=== PATIENT | female | born 1955 | race Hispanic/Latino ===

== ENCOUNTER 2017-11-23 08:30 | Outpatient (CLI) | payer BC | END 2017-11-23 08:31 | disposition home or self-care (01) | LOC: BICMAMMO 08:30 | PROVIDERS: ATTEND Family Medicine | DX: Z12.31 Encounter for screening mammogram for malignant neoplasm of breast (principal) | CPT/HCPCS: 77063; 77067 ==

== ENCOUNTER 2018-05-28 08:31 | Emergency (ER) | payer BC ==
[2018-05-28 09:26] LABS: #Eosinphils 0.1 thou/uL (0.0-0.7); #Lymphocytes 1.4 thou/uL (1.20-3.40); #Monocytes 0.5 thou/uL (0.11-0.59); %Basophils 0.2 % (0.0-1.0); %Eosinophils 1.4 % (0.0-10.0); %Lymphocytes 17.1 % (21.0-51.0); %Monocytes 6.7 % (0.0-10.0); %Neutrophils 74.6 % (42.0-75.0); Hemoglobin 13.4 g/dL (12.0-16.0); Mean Corpuscular HGB CONC 32.9 g/dL (32.0-36.0); Mean Corpuscular Hemoglobin 30.8 pg (27.0-31.0); Mean Corpuscular Volume 93.5 fL (78.0-98.0); Mean Platelet Volume 6.4 fL (7.4-10.4); Platelet Count 304 thou/uL (130-400); RBC Distribution Width 11.9 % (11.5-14.5); Red Blood Cell (RBC) Count 4.37 mill/uL (4.20-5.40); White Blood Cell (WBC) Count 8.1 thou/uL (4.8-10.8)
[2018-05-28 09:27] LABS: Bilirubin Negative (Negative); Blood, Urine Trace (Negative); Clarity CLEAR (Clear); Glucose, Urine (Dipstick) Negative (Negative); Leukocyte Small (Negative); Nitrite Negative (Negative); Protein, Urine (Dipstick) Negative (Neg-Trace); Specific Gravity, Urine 1.021 (1.002-1.036); Urobilinogen 0.2 mg/dL (0.2-1.0)
[2018-05-28 09:28] LABS: Bacteria/HPF None Seen HPF (None Seen); Hyaline Casts/LPF 0-3 HYALINE CAST LPF (0-3 Hyaline); Pathc Cast-AUWi Flag 0.29 (0-2.49); Squamous Epithelial 0-3 HPF (0-3); WBC/HPF 0-3 HPF (0-3)
[2018-05-28 09:39] LABS: ALT (SGPT) 17 U/L (8-55); AST (SGOT) 18 U/L (5-34); Albumin 4.7 g/dL (3.4-4.8); Alkaline Phosphatase 60 U/L (40-150); Anion Gap 15 mmol/L (10-20); BUN (Urea Nitrogen) 16 mg/dL (9.8-20.1); Bilirubin, Total 0.4 mg/dL (0.2-1.2); Calc. Creatinine Clearance 0 mL/min (70-130); Calcium 9.6 mg/dL (7.8-10.44); Carbon Dioxide 25 mmol/L (23-31); Chloride 103 mmol/L (98-107); Estimated GFR-MDRD 73; Globulin 2.6 g/dL (2.4-3.5); Glucose 100 mg/dL (80-115); Lipase 17 U/L (8-78); Potassium 3.8 mmol/L (3.5-5.1); Protein, Total 7.3 g/dL (6.0-8.3); Sodium 139 mmol/L (136-145)
[2018-05-28] MEDS ORDERED: ISOVUE-370 76%-LOCM 1 ML ONE (09:50)
--- NOTE | 2018-05-28 14:03 | RAD ---
ONE VIEW CHEST TWO VIEWS ABDOMEN: History: Nausea, vomiting, dizziness. FINDINGS: There is fullness in the right paratracheal region which corresponds to a prominent azygos vein noted on CT from 06-02-17. Normal cardiac silhouette. The pulmonary vessels are within normal limits. Sligh t fullness in the right perihilar region. Costophrenic angles are clear. There is no pneumothorax or osseous abnormality. There is excreted contrast in the unremarkable left and right ureter. Bowel gas pattern is nonspecifi c. Surgical clips in the right upper quadrant. No obvious filling defects. Urinary bladder is unremar kable. IMPRESSION: 1. Possible left perihilar infiltrate. Continued surveillance to be sure of resolution. 2. Nonspecific bowel gas pattern. POS: [facility]
--- NOTE | 2018-05-28 14:06 | CT ---
CT ABDOMEN WITH CONTRAST CT PELVIS WITH CONTRAST: DATE: 05/28/2018 TIME: 12:43 p.m. HISTORY: A 62-year-old female with left lower quadrant abdominal pain. COMPARISON: None available. TECHNIQUE: IV injection of iodinated contrast media: Isovue-370 100 mL. Oral contrast media: Not administered. FINDINGS: There are multiple focal low attenuation lesions in the liver. Many of them are cysts. The largest is a round, 2 cm, well circumscribed, cystic lesion (density 14 HU), near the junction between the le ft and right lobes of the liver, near the liver dome (somewhere in the vicinity of the junction betwe en hepatic segments 4A and 8). Several of them are tiny and too small to definitively characterize. There is one irregularly-shaped low density lesion, which is located more inferiorly, in a subcapsul ar location, anterolaterally, somewhere near the junction between hepatic segments 4A and 8, measurin g approximately 1.4 x 0.9 x 0.4 cm. It has mixed-intermediate attenuation (axial image 20/91, series 2; coronal image 35 of 129, series 601). The rest of the liver parenchyma appears normal. No karla l vein thrombosis. Cholecystectomy clips in the gallbladder fossa. Mild extrahepatic biliary ductal dilation due to the cholecystectomy. A few tiny, focal, round hypodensities in the bilateral renal parenchyma, in the lower poles, too small to definitively characterize, but probably cysts. No hydro nephrosis. Normal abdominal aorta, pancreas, adrenals, and spleen. Retroaortic left renal vein. Ab sent uterus. Normal urinary bladder. Normal appendix. No small bowel dilation. No ascites or yi toneum. No colonic diverticulitis. A Schulte type dynamic compression screw fixating an old left i ntertrochanteric/subtrochanteric fracture. IMPRESSION: 1. No acute findings. 2. In addition to multiple hepatic cysts, there is one particular irregularly-shaped, mixed density lesion in the liver, which is indeterminate. Recommend multiphase CT of the abdomen with and without contrast (liver mass/hemangioma protocol), on an outpatient, elective basis. 3. Status post cholecystectomy and hysterectomy. 4. Status post fixation of old intertrochanteric/subtrochanteric left proximal femoral fracture with dynamic compression screw. KAVITHA Herman POS: [facility]
== END 2018-05-28 14:11 | disposition home or self-care (01) ==
LOC: ERS 08:31
DX: A08.4 Viral intestinal infection, unspecified (principal); E78.5 Hyperlipidemia, unspecified; I10 Essential (primary) hypertension; Z86.73 Personal history of transient ischemic attack (TIA), and cerebral infarction without residual deficits; F41.9 Anxiety disorder, unspecified; Z79.899 Other long term (current) drug therapy; Z79.82 Long term (current) use of aspirin
CPT/HCPCS: 36415; 74022; 74177; 80053; 81003; 81015; 83690; 85025; 87804; 93005; 96360

== ENCOUNTER 2018-07-19 09:34 | Outpatient (CLI) | payer BC ==
--- NOTE | 2018-07-19 11:24 | RAD ---
CHEST 2 VIEWS: Date: 07/19/18 HISTORY: Dyspnea. COMPARISON: 05/28/18. FINDINGS: Heart size is within normal limits. The lungs are clear. Again noted is prominence in the right azygo s region, evidence for an enlarged right azygos vein, consistent with azygos continuation of the IVC. No confluent pneumonia, overt edema, or pleural effusion. IMPRESSION: No acute intrathoracic disease. Stable from prior study. Abnormally enlarged azygos vein. POS: [facility]
== END 2018-07-19 09:35 | disposition home or self-care (01) ==
LOC: RAD 09:34
PROVIDERS: ATTEND Internal Medicine Critical Care Medicine
DX: R06.00 Dyspnea, unspecified (principal); I87.8 Other specified disorders of veins
CPT/HCPCS: 71046

== ENCOUNTER 2018-07-24 08:09 | Outpatient (CLI) | payer BC ==
--- NOTE | 2018-07-24 09:36 | CT ---
CT CHEST WITHOUT CONTRAST: HISTORY: Lung nodule. COMPARISON: CT pulmonary angiogram from 06/02/2017. FINDINGS: Absence of IV contrast reduces the sensitivity of the exam, particularly for evaluation of mediastina l, hilar, and vascular structures. There are vascular calcifications without evidence of aneurysmal dilatation of the thoracic aorta. N o pleural or pericardial effusions are seen. The 4 mm nodule in the right upper lobe is stable. No new lung nodules or masses are identified. Upper abdominal tomograms demonstrate liver cysts, a retroaortic left renal vein, postop changes of a cholecystectomy, and a small hiatal hernia. IMPRESSION: Stable 4 mm right upper lobe lung nodule. Follow-up exam in 12 month is recommended. POS: [facility]
== END 2018-07-24 08:10 | disposition home or self-care (01) ==
LOC: CT 08:09
PROVIDERS: ATTEND Internal Medicine Critical Care Medicine
DX: R91.1 Solitary pulmonary nodule (principal)
CPT/HCPCS: 71250

== ENCOUNTER 2018-09-06 07:46 | Outpatient (CLI) | payer BC ==
--- NOTE | 2018-09-06 08:22 | BD ---
DEXA BONE DENSITY STUDY: HISTORY: Menopausal screening. FINDINGS: Lumbar Spine: BMD (g/cm2) L1 0.675 T-Score: -2.9 L2 0.691 T-Score: -3.1 L3 0.672 T-Score: -3.7 L4 0.681 T-Score: -3.5 L1-L4 0.679 T-Score: -3.3 Evidence for osteoporosis with high risk for fracture. Right Hip: Femoral Neck: 0.421 T-Score: -3.9 Total Femur: 0.742 T-Score: -1.6 Evidence for osteoporosis with high risk for fracture. FRAX score not given because some T-Scores were at or below -2.5 Impression: Spine and right hip osteoporosis. POS: [facility]
== END 2018-09-06 07:47 | disposition home or self-care (01) ==
LOC: BICMAMMO 07:46
PROVIDERS: ATTEND Obstetrics & Gynecology
DX: Z13.820 Encounter for screening for osteoporosis (principal); M81.0 Age-related osteoporosis without current pathological fracture
CPT/HCPCS: 77080

== ENCOUNTER 2019-10-02 14:36 | Emergency (ER) | payer BC ==
[2019-10-02] MEDS ORDERED: Ketorolac Tromethamine 30 MG/ML VIAL ONE (15:00)
--- NOTE | 2019-10-02 16:43 | RAD ---
EXAM: LEFT WRIST THREE VIEWS: 09/12/19 HISTORY: Injury from trauma, mechanical fall. FINDINGS: Arthrosis and degenerative changes left wrist. No acute fracture or dislocation. IMPRESSION: Arthrosis and degenerative change without fracture or dislocation. POS: [facility]
--- NOTE | 2019-10-02 16:54 | RAD ---
EXAM: LEFT FEMUR TWO VIEWS: 10/02/19 HISTORY: Injury from trauma. Pain. Left compression screw stabilizing the left hip and proximal femur. No evidence for acute fracture or dislocation. IMPRESSION: No acute process. Internal fixation stabilizing the left hip and proximal femur. POS: [facility]
--- NOTE | 2019-10-02 18:08 | RAD ---
LEFT ELBOW FOUR VIEWS: 10/02/19 HISTORY: Elbow injury. There is no signs of fracture, dislocation or joint effusion. IMPRESSION: Negative left elbow. POS: [facility]
== END 2019-10-02 17:50 | disposition home or self-care (01) ==
LOC: ERS 14:36
DX: S63.502A Unspecified sprain of left wrist, initial encounter (principal); E78.5 Hyperlipidemia, unspecified; I10 Essential (primary) hypertension; E78.00 Pure hypercholesterolemia, unspecified; F41.9 Anxiety disorder, unspecified; Z79.82 Long term (current) use of aspirin; Z86.73 Personal history of transient ischemic attack (TIA), and cerebral infarction without residual deficits; Z79.899 Other long term (current) drug therapy; W11.XXXA Fall on and from ladder, initial encounter
CPT/HCPCS: 96372; J1885

== ENCOUNTER 2020-08-06 14:39 | Outpatient (CLI) | payer BC ==
[2020-08-07 01:24] LABS: SARS-CoV-2 PCR by NAA Not Detected (NotDetected)
== END 2020-08-06 14:40 | disposition home or self-care (01) ==
LOC: LABBT 14:39
PROVIDERS: ATTEND Orthopaedic Surgery
DX: Z01.818 Encounter for other preprocedural examination (principal); S52.501A Unspecified fracture of the lower end of right radius, initial encounter for closed fracture; Z20.822 Contact with and (suspected) exposure to COVID-19
CPT/HCPCS: 87635; 93005; 93010; U0003; U0005

== ENCOUNTER 2020-08-10 11:10 | Day surgery (SDC) | payer OTHER ==
[2020-08-09 10:10] VITALS: BMI 24.1
[2020-08-10] MEDS ORDERED: Midazolam HCl 2 mg/2 ml Vial ONE (13:31)
[2020-08-10] MEDS ORDERED: Fentanyl 100 MCG/2 ML VIAL ONE (13:31)
[2020-08-10] MEDS ORDERED: Ondansetron PF 4 MG/2 ML Vial ONE ×2 (13:36→14:18)
[2020-08-10] MEDS ORDERED: Scopolamine 1.5 mg/72 hour Patch ONE (13:36)
[2020-08-10] MEDS ORDERED: Lidocaine 1% (PF) 30 ML VIAL ONE (13:39)
[2020-08-10] MEDS ORDERED: Bupivacaine HCl 0.5%/Epinephrine 1:200,000/PF 30 ml Vial ONE (13:45)
[2020-08-10] MEDS ORDERED: Lidocaine 1% PF 5 ML VIAL ONE (14:18)
[2020-08-10] MEDS ORDERED: Succinylcholine 200 MG/10 ml SYRINGE FS ONE (14:18)
[2020-08-10] MEDS ORDERED: PROPOFOL 200 MG/20 ML VIAL ONE (14:18)
[2020-08-10] MEDS ORDERED: Ketorolac Tromethamine 30 MG/ML VIAL ONE (14:18)
[2020-08-10] MEDS ORDERED: Dexamethasone 20 MG/5 ML VIAL ONE (14:18)
== END 2020-08-10 18:00 | disposition home or self-care (01) ==
LOC: SDC 11:10
PROVIDERS: ATTEND Orthopaedic Surgery
PROC: 0PSH04Z Reposition Right Radius with Internal Fixation Device, Open Approach (ICD-10-PCS; principal; 2020-08-10)
DX: S52.531A Colles' fracture of right radius, initial encounter for closed fracture (principal); I10 Essential (primary) hypertension; E78.5 Hyperlipidemia, unspecified; D64.9 Anemia, unspecified; E03.9 Hypothyroidism, unspecified; Z79.82 Long term (current) use of aspirin; Z79.899 Other long term (current) drug therapy; Z86.73 Personal history of transient ischemic attack (TIA), and cerebral infarction without residual deficits; Z88.5 Allergy status to narcotic agent; W19.XXXA Unspecified fall, initial encounter; Y99.0 Civilian activity done for income or pay
CPT/HCPCS: 76000; C1713; J0690; J1100; J1885; J2001; J2250; J2405; J2704; J3010

== ENCOUNTER 2020-09-20 12:56 | Outpatient (CLI) | payer BC | END 2020-09-20 12:57 | disposition home or self-care (01) | LOC: BICMAMMO 12:56 | PROVIDERS: ATTEND Physician Assistant | DX: Z13.820 Encounter for screening for osteoporosis (principal); M81.0 Age-related osteoporosis without current pathological fracture | CPT/HCPCS: 77080 ==

== ENCOUNTER 2021-09-15 08:30 | Outpatient (CLI) | payer BC | END 2021-09-15 08:31 | disposition home or self-care (01) | LOC: BICMAMMO 08:30 | PROVIDERS: ATTEND Family Medicine | DX: Z12.31 Encounter for screening mammogram for malignant neoplasm of breast (principal) | CPT/HCPCS: 77063; 77067 ==

== ENCOUNTER 2024-01-23 09:44 | Outpatient (CLI) | payer BC | END 2024-01-23 09:45 | disposition home or self-care (01) | LOC: BICMAMMO 09:44 | PROVIDERS: ATTEND Nurse Practitioner Family | DX: Z12.31 Encounter for screening mammogram for malignant neoplasm of breast (principal) | CPT/HCPCS: 77063; 77067 ==

== ENCOUNTER 2025-01-11 21:17 | Emergency (ER) | payer BC, MEDICARE | END 2025-01-11 23:29 | disposition home or self-care (01) | LOC: ERS 21:17 | DX: J06.9 Acute upper respiratory infection, unspecified (principal); I10 Essential (primary) hypertension; Z86.73 Personal history of transient ischemic attack (TIA), and cerebral infarction without residual deficits | CPT/HCPCS: 71045; 87081; 87428; 87430 ==

== ENCOUNTER 2025-02-23 07:28 | Observation (INO) | payer BC, MEDICARE ==
[2025-02-23 08:04] LABS: #Basophils 0.05 10x3/uL (0.0-0.2); #Eosinophils 0.17 10x3/uL (0.0-0.7); #Monocytes 0.67 10x3/uL (0.11-0.59); #Neutrophils 4.84 10x3/uL (1.40-6.50); %Basophils 0.6 % (0.0-1.0); %Eosinophils 2.0 % (0.0-10.0); %Lymphocytes 30.3 % (21.0-51.0); %Monocytes 8.1 % (0.0-10.0); %Neutrophils 58.3 % (42.0-75.0); Hematocrit 42.8 % (36.0-47.0); Hemoglobin 14.0 g/dL (12.0-16.0); Mean Corpuscular Hemoglobin 29.4 pg (27.0-31.0); Mean Corpuscular Volume 89.9 fL (78.0-98.0); Platelet Count 296 10x3/uL (130-400); Red Blood Cell (RBC) Count 4.76 mill/uL (4.20-5.40); White Blood Cell (WBC) Count 8.31 10x3/uL (4.8-10.8)
[2025-02-23 08:18] LABS: ALT (SGPT) 17 U/L (Less than 34); AST (SGOT) 22 U/L (11-34); Albumin 4.1 g/dL (3.1-4.5); Alkaline Phosphatase 46 U/L (40-110); Anion Gap 13 mmol/L (10-20); BUN (Urea Nitrogen) 16 mg/dL (9.8-20.1); Bilirubin, Total 0.5 mg/dL (0.3-1.2); Calc. Creatinine Clearance 0 mL/min (70-130); Calcium 8.6 mg/dL (7.8-10.44); Carbon Dioxide 26 mmol/L (23-31); Chloride 105 mmol/L (98-107); Globulin 3.0 g/dL (2.4-3.5); Glucose 116 mg/dL (80-115); Potassium 3.6 mmol/L (3.5-5.1); Sodium 140 mmol/L (136-145)
[2025-02-23] MEDS ORDERED: Ondansetron PF 4 MG/2 ML Vial ONE (09:08)
[2025-02-23 09:48] LABS: Bacteria/HPF None Seen HPF (None Seen); CAUTI Indications for Culture Pelvic or flank pain; WBC/HPF 0-3 HPF (0-3)
[2025-02-23 09:49] LABS: Glucose, Urine (Dipstick) Normal (Negative); Leukocyte Negative Leu/uL (Negative); Protein, Urine (Dipstick) Negative (Neg-Trace); RBC/HPF 0-3 HPF (0-3)
[2025-02-23 09:54] LABS: Specific Gravity, Urine 1.015 (1.005-1.030)
[2025-02-23 09:55] LABS: Urine Culture Reflex No No
[2025-02-23] MEDS ORDERED: Iopamidol-370 76% 500 ML MDV (1 ML CHARGE) ONE (10:26)
[2025-02-23] MEDS ORDERED: Metoclopramide HCl 10 MG (2 mL) VIAL ONE (10:31)
[2025-02-23] MEDS ORDERED: Acetaminophen 325 MG TAB ONE ×2 (10:34→17:19)
[2025-02-23] MEDS ORDERED: Guaifenesin DM 100-10/5 ML UDCUP PO PRN (12:39)
[2025-02-23] MEDS ORDERED: Ondansetron PF 4 MG/2 ML Vial IVP PRN (12:39)
[2025-02-23] MEDS ORDERED: Calcium Carbonate 500 MG ChewTAB PO PRN (12:39)
[2025-02-23] MEDS: Acetaminophen 325 MG TAB PO SCH (17:22)
[2025-02-24] MEDS: Ferrous Sulfate 325 MG TAB PO SCH (00:20)
[2025-02-24 03:16] VITALS: BMI 25.2
[2025-02-24 04:01] LABS: #Basophils 0.04 10x3/uL (0.0-0.2); #Eosinophils 0.14 10x3/uL (0.0-0.7); #Monocytes 0.65 10x3/uL (0.11-0.59); #Neutrophils 4.54 10x3/uL (1.40-6.50); %Basophils 0.5 % (0.0-1.0); %Eosinophils 1.9 % (0.0-10.0); %Lymphocytes 26.0 % (21.0-51.0); %Monocytes 8.9 % (0.0-10.0); %Neutrophils 62.3 % (42.0-75.0); Hematocrit 40.8 % (36.0-47.0); Hemoglobin 13.1 g/dL (12.0-16.0); Mean Corpuscular Hemoglobin 29.3 pg (27.0-31.0); Mean Corpuscular Volume 91.3 fL (78.0-98.0); Platelet Count 283 10x3/uL (130-400); Red Blood Cell (RBC) Count 4.47 mill/uL (4.20-5.40); White Blood Cell (WBC) Count 7.30 10x3/uL (4.8-10.8)
[2025-02-24 04:25] LABS: Anion Gap 13 mmol/L (10-20); BUN (Urea Nitrogen) 15 mg/dL (9.8-20.1); Calc. Creatinine Clearance 76 mL/min (70-130); Calcium 8.6 mg/dL (7.8-10.44); Carbon Dioxide 26 mmol/L (23-31); Cardiac Risk 2.8 (Less than 4.5); Chloride 107 mmol/L (98-107); Cholesterol 247 mg/dl (< 200 Desired); Glucose 93 mg/dL (80-115); HDL Cholesterol 88 mg/dL (>60 Neg Risk); LDL Cholesterol, Calculated 137 mg/dL; Potassium 3.8 mmol/L (3.5-5.1); Sodium 142 mmol/L (136-145); Triglycerides 110 mg/dL (Less than 150)
[2025-02-24] MEDS: Lisinopril 5 MG TAB PO SCH (09:04)
[2025-02-24] MEDS: Aspirin 81 mg Enteric Coated Tablet PO SCH (09:04)
[2025-02-24] MEDS: Enoxaparin 40 MG (0.4 mL) SYRINGE SC SCH (09:05)
[2025-02-24 16:30] VITALS: BP 129/68
[2025-02-24 16:57] VITALS: TEMP 97.8
[2025-02-25] MEDS ORDERED: FLU (Fluad Triv) 25-26 (65UP)PF 45 MCG/0.5 ML Syringe IM ONE (09:00)
== END 2025-02-24 17:01 | disposition home or self-care (01) ==
LOC: ERS 07:28 → ERHOLD 12:39 → 2SE 02-24 03:11
PROVIDERS: ADMIT Internal Medicine; ATTEND Student in an Organized Health Care Education/Training Program
DX: R42 Dizziness and giddiness (principal); I10 Essential (primary) hypertension; E78.5 Hyperlipidemia, unspecified; G45.9 Transient cerebral ischemic attack, unspecified; Z88.5 Allergy status to narcotic agent
CPT/HCPCS: 36415; 70496; 70498; 70551; 71046; 80048; 80053; 80061; 81001; 84443; 84484; 85025; 93005; 96365; 96372; 96375; G0378; J1650; J2405; J2765; Q9967